=== PATIENT | male | born 1995 | race Two or more races ===

== ENCOUNTER 2020-08-25 | Emergency (ER) | payer SELFPAY ==
--- NOTE | 2020-08-25 15:05 | EDPHYS ---
Physician Documentation [facility] Name: Alex Polk Age: 25 yrs Sex: Male : 1995 Arrival Date: 08/25/2020 Time: 13:12 Bed 13 Private MD: ED Physician Tavo Mcmillan HPI: 08/25 13:30 This 25 yrs old Male presents to ER via Ambulatory with complaints of Eye Problem. snw 13:30 The patient is experiencing matting or discharge, pain, redness, to the left eye. snw Onset: The symptoms/episode began/occurred 1.5 month(s) ago. Duration: the symptoms are continuous. Aggravated by nothing. Associated signs and symptoms: Pertinent positives: None. Patient does not utilize any form of vision correction. Severity of symptoms: At their worst the symptoms were severe in the emergency department the symptoms have improved markedly. It is unknown whether or not the patient has had similar symptoms in the past. The patient has been recently seen by a physician: with similar presenting complaints, was given a prescription for antibiotics. . Historical: - Allergies: 13:28 No Known Allergies; tw2 - Home Meds: 13:28 None [Active]; tw2 - PMHx: 13:28 None; tw2 - Immunization history:: Adult Immunizations. - Social history:: Smoking status: . ROS: 13:26 Constitutional: Negative for fever, chills, and weight loss, Eyes: Positive for injury, snw pain, redness, itching, and discharge, from 1st left eye, then both, then left returned over the past 1.5 months. Pt has been using tobramycin drops. ENT: Negative for injury, pain, and discharge, Neck: Negative for injury, pain, and swelling, Cardiovascular: Negative for chest pain, palpitations, and edema, Respiratory: Negative for shortness of breath, cough, wheezing, and pleuritic chest pain, Abdomen/GI: Negative for abdominal pain, nausea, vomiting, diarrhea, and constipation, Back: Negative for injury and pain, : Negative for injury, bleeding, discharge, and swelling, MS/Extremity: Negative for injury and deformity, Skin: Negative for injury, rash, and discoloration, Neuro: Negative for headache, weakness, numbness, tingling, and seizure, Psych: Negative for depression, anxiety, suicide ideation, homicidal ideation, and hallucinations. Exam: 13:25 Constitutional: This is a well developed, well nourished patient who is awake, alert, snw and in no acute distress. Head/Face: Normocephalic, atraumatic. ENT: Nares patent. No nasal discharge, no septal abnormalities noted. Tympanic membranes are normal and external auditory canals are clear. Oropharynx with no redness, swelling, or masses, exudates, or evidence of obstruction, uvula midline. Mucous membranes moist. Neck: Trachea midline, no thyromegaly or masses palpated, and no cervical lymphadenopathy. Supple, full range of motion without nuchal rigidity, or vertebral point tenderness. No Meningismus. Chest/axilla: Normal chest wall appearance and motion. Nontender with no deformity. No lesions are appreciated. Cardiovascular: Regular rate and rhythm with a normal S1 and S2. No gallops, murmurs, or rubs. Normal PMI, no JVD. No pulse deficits. Respiratory: Lungs have equal breath sounds bilaterally, clear to auscultation and percussion. No rales, rhonchi or wheezes noted. No increased work of breathing, no retractions or nasal flaring. Abdomen/GI: Soft, non-tender, with normal bowel sounds. No distension or tympany. No guarding or rebound. No evidence of tenderness throughout. Back: No spinal tenderness. No costovertebral tenderness. Full range of motion. Skin: Warm, dry with normal turgor. Normal color with no rashes, no lesions, and no evidence of cellulitis. MS/ Extremity: Pulses equal, no cyanosis. Neurovascular intact. Full, normal range of motion. Neuro: Awake and alert, GCS 15, oriented to person, place, time, and situation. Cranial nerves II-XII grossly intact. Motor strength 5/5 in all extremities. Sensory grossly intact. Cerebellar exam normal. Normal gait. Psych: Awake, alert, with orientation to person, place and time. Behavior, mood, and affect are within normal limits. 13:25 Eyes: Conjunctiva: injected, in the left eye, mild. Vital Signs: 13:24 BP 101 / 64; Pulse 82; Resp 17; Temp 97.9(O); Pulse Ox 97% on R/A; tw2 MDM: 13:16 Patient medically screened. snw 13:30 Data reviewed: vital signs, nurses notes. Data interpreted: Pulse oximetry: on room air snw is 97 %. Interpretation: normal. Counseling: I had a detailed discussion with the patient and/or guardian regarding: the historical points, exam findings, and any diagnostic results supporting the discharge/admit diagnosis, the need for outpatient follow up, to return to the emergency department if symptoms worsen or persist or if there are any questions or concerns that arise at home. Special discussion: Based on the history and exam findings, there is no indication for further emergent testing or inpatient evaluation. I discussed with the patient/guardian the need to see the opthamologist for further evaluation of the symptoms, I discussed with the patient/guardian the need to see the primary care provider for further evaluation of the symptoms. Administered Medications: No medications were administered Disposition: 17:44 Co-signature as Attending Physician, Tavo Mcmillan MD. rn Disposition: 08/25/20 13:29 Discharged to Home. Impression: Conjunctivitis. - Condition is Stable. - Discharge Instructions: Bacterial Conjunctivitis, Hand Washing. - Prescriptions for Vigamox 0.5 % Ophthalmic Drops - instill 1 drop by OPHTHALMIC route every 8 hours for 7 days; 5 milliliter. - Medication Reconciliation Form, Thank You Letter, Antibiotic Education, Prescription Opioid Use, Work release form form. - Follow up: Emergency Department; When: As needed; Reason: Worsening of condition. Follow up: Private Physician; When: 1 - 2 days; Reason: Recheck today's complaints, Continuance of care, Re-evaluation by your physician. Signatures: Dilia Aguilar, DISTRICT RANGER-C DISTRICT RANGER-Csnw Tavo Mcmillan MD MD rn Wise, Tara, RN RN tw2 Corrections: (The following items were deleted from the chart) 13:36 13:29 08/25/2020 13:29 Discharged to Home. Impression: Conjunctivitis. Condition is tw2 Stable. Forms are Work release form, Medication Reconciliation Form, Thank You Letter, Antibiotic Education, Prescription Opioid Use. Follow up: Emergency Department; When: As needed; Reason: Worsening of condition. Follow up: Private Physician; When: 1 - 2 days; Reason: Recheck today's complaints, Continuance of care, Re-evaluation by your physician. snw
--- NOTE | 2020-08-25 15:05 | ER ---
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 Coronavirus screen: At this time, the client does not indicate any symptoms associated with coronavirus-19. Ebola Screen: Patient denies exposure to infectious person. Initial Sepsis Screen: Does the patient meet any 2 criteria? No. Patient's initial sepsis screen is negative. Does the patient have a suspected source of infection? No. Patient's initial sepsis screen is negative. Risk Assessment: Do you want to hurt yourself or someone else? Patient reports no desire to harm self or others. Onset of symptoms. 13:14 Method Of Arrival: Ambulatory tw2 13:14 Acuity: QUETA 4 tw2 13:24 Note provider at bedside at this time. tw2 Triage Assessment: 13:27 General: Appears in no apparent distress. Behavior is calm, cooperative, appropriate tw2 for age. EENT: Reports pain in left eye. Neuro: Level of Consciousness is awake, alert, obeys commands, Oriented to person, place, time, situation. Cardiovascular: Patient's skin is warm and dry. Respiratory: Airway is patent Respiratory effort is even, unlabored, Respiratory pattern is regular, symmetrical. GI: No signs and/or symptoms were reported involving the gastrointestinal system. : No signs and/or symptoms were reported regarding the genitourinary system. Derm: No signs and/or symptoms reported regarding the dermatologic system. Musculoskeletal: Range of motion: intact in all extremities. Historical: - Allergies: 13:28 No Known Allergies; tw2 - Home Meds: 13:28 None [Active]; tw2 - PMHx: 13:28 None; tw2 - Immunization history:: Adult Immunizations. - Social history:: Smoking status: . Screenin:24 Abuse screen: Denies threats or abuse. Nutritional screening: No deficits noted. tw2 Tuberculosis screening: No symptoms or risk factors identified. Fall Risk None identified. Assessment: 13:30 Reassessment: see triage assessment. tw2 13:35 Reassessment: Patient appears in no apparent distress at this time. No changes from tw2 previously documented assessment. Patient and/or family updated on plan of care and expected duration. Pain level reassessed. Patient is alert, oriented x 3, equal unlabored respirations, skin warm/dry/pink. Vital Signs: 13:24 BP 101 / 64; Pulse 82; Resp 17; Temp 97.9(O); Pulse Ox 97% on R/A; tw2 ED Course: 13:12 Patient arrived in ED. ag5 13:14 Bed in low position. tw2 13:16 Dilia Aguilar FNP-C [facility]. snw 13:16 Tavo Mcmillan MD is Attending Physician. snw 13:23 Reena Vael, SHAE is Primary Nurse. tw2 13:24 Arm band placed on. tw2 13:27 Triage completed. tw2 13:36 No provider procedures requiring assistance completed. Patient did not have IV access tw2 during this emergency room visit. Administered Medications: No medications were administered Outcome: 13:29 Discharge ordered by . snw 13:36 Discharged to home ambulatory. tw2 13:36 Condition: stable 13:36 Discharge instructions given to patient, Instructed on discharge instructions, follow up and referral plans. Demonstrated understanding of instructions, follow-up care, medications, Prescriptions given X 1. 13:36 Patient left the ED. tw2 Signatures: Dilia Aguilar FNP-C [employer] CL[employer] P[employer]MAN-Csnw Reena Vale RN RN tw2 Chuck Edward ag5
== END 2020-08-25 13:36 | disposition home or self-care (01) ==
DX: H10.9 Unspecified conjunctivitis (principal)
CPT/HCPCS: 99282